=== PATIENT | male | born 1950 | race Two or more races ===

== ENCOUNTER 2022-11-16 11:37 | Emergency (ER) | payer OTHER ==
[~2022-11-16] VITALS: Ht 167.6 cm; Wt 71.0 kg
[2022-11-16 11:51] VITALS: BP 148/88
== END 2022-11-16 16:06 | disposition home or self-care (01) ==
LOC: ER 11:38
DX: M54.6 Pain in thoracic spine (principal); M79.602 Pain in left arm; V89.2XXA Person injured in unspecified motor-vehicle accident, traffic, initial encounter; Y93.89 Activity, other specified; Y92.89 Other specified places as the place of occurrence of the external cause; Y99.8 Other external cause status
CPT/HCPCS: 72074; 73090; 82948; 99284